=== PATIENT | female | born 1995 | race Caucasian/White ===

== ENCOUNTER 2017-09-26 11:27 | Inpatient (IN) | payer BC ==
[~2017-09-26] VITALS: Ht 170.2 cm; Wt 82.1 kg
--- NOTE | ~2017-09-26 | HC ---
[facility] [place] [address] CONSULTATION Name: EMERALD GARNETT Vipul Room #: 456-P ADM IN M.R.#: [id number] Admission: 09/26/17 Attend Phys: Jason Saravia Discharge: Date of : 89 Report #: [id number] THIS REPORT FOR: //name// CC: [facility] physician/PCP Jason Campos MD HISTORY OF PRESENT ILLNESS: The patient is a 22-year-old white woman, referred for an Infectious Disease's opinion by Dr. Campos, strap buckler, who saw the patient yesterday with painful lesion, left side of body. Culture was taken and sent to [facility], and of course, we have no results yet. Her CBC reveals elevation of white blood cell count of 11,600. The patient relates unwell since last Saturday. She feels febrile, extremely weak and having painful lesions on the left side of the chest, abdomen and left gluteal region as well as pain radiating into the left lower extremity. The patient is unaware of being exposed to anyone with MRSA. Boyfriend relates no previous yeast or Staphylococcal infection MEDICATIONS: The patient is on treatment with Minocin 75 mg b.i.d. since yesterday. Ultram 50 mg q.i.d. p.r.n. and control pill. FAMILY HISTORY: Father of liver cirrhosis -- alcoholic. Mother in good health. REVIEW OF SYSTEMS: Besides painful lesions on chest, abdominal wall and left gluteal region, the patient is said to be in apparent good health. PHYSICAL EXAMINATION: GENERAL: A 22-year-old white woman, well developed, well nourished, no distress. VITAL SIGNS: Afebrile. Vital signs stable. HEENMT: Within range. NECK: Supple, no thyromegaly. LUNGS: Clear to auscultation. HEART: S1, S2. No gallop or murmur. ABDOMEN: Soft, no masses or megaly. SKIN: Revealed multiple lesions of furunculosis on the left chest, abdominal wall and left gluteal region. The largest lesion is the one on the left gluteal area. NEUROLOGIC: Grossly within normal limit. EXTREMITIES: No clubbing or cyanosis. 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 RECOMMENDATIONS: Recommended the patient to be admitted to [facility]. We will obtain MRSA screen nasal. CBC, CMP, ESR, procalcitonin. We [address] [address] CONSULTATION Name: EMERALD GARNETT Room #: 456-P ADM IN .R.#: [id number] Admission: 09/26/17 Attend Phys: Jason Saravia Discharge: Date of : 89 Report #: [id number] will start intravenous vancomycin. Dr. Campos, thank you for requesting my suggestions in the care of your patient. <ELECTRONICALLY SIGNED> By: Emmanuel Solis MD 09/27/17 0811 [id number] Emmanuel Solis MD /nt
[2017-09-26] MEDS ORDERED: MINOCIN100 MG PO (11:37)
[2017-09-26] MEDS ORDERED: TRAMADOL 50 MG50 MG PO (11:38)
[2017-09-26] MEDS ORDERED: FEMYNOR 28 TAB1 EACH PO (11:38)
[2017-09-26 11:39] VITALS: BP 131/86
[2017-09-26 12:41] VITALS: BP 124/69
[2017-09-26 13:42] LABS: HEMATOCRIT 38.8 % (37.0-47.0); HEMOGLOBIN 13.4 gm/dL (12.0-15.0); MCH 29.8 pg (26.0-34.0); MCHC 34.7 g/dL (28.0-37.0); RBC 4.51 mil/uL (4.20-5.00); RDW 12.7 % (10.5-14.5)
[2017-09-26 13:57] LABS: ALBUMIN 3.5 g/dL (3.4-5.0); CALCIUM 9.1 mg/dL (8.5-10.1); CREATININE 0.8 mg/dL (0.6-1.0); POTASSIUM 3.8 mmol/L (3.5-5.1); TOTAL BILIRUBIN 0.3 mg/dL (<0.1-1.0); TOTAL PROTEIN 7.6 g/dL (6.4-8.2)
[2017-09-26 15:40] VITALS: BP 124/75
[2017-09-26 20:36] VITALS: BP 126/77
[2017-09-26 23:44] VITALS: BP 112/52
[2017-09-27 03:55] VITALS: BP 113/62
[2017-09-27 08:00] VITALS: BP 108/60
[2017-09-27 16:00] VITALS: BP 116/74
[2017-09-27 20:09] VITALS: BP 119/70
[2017-09-28 07:50] VITALS: BP 110/70
[2017-09-28 09:09] LABS: HEMATOCRIT 40.3 % (37.0-47.0); HEMOGLOBIN 13.7 gm/dL (12.0-15.0); MCH 29.6 pg (26.0-34.0); MCHC 34.1 g/dL (28.0-37.0); MCV 86.8 fL (80.0-100.0); RBC 4.64 mil/uL (4.20-5.00); WBC 8.7 thou/uL (4.0-11.0)
[2017-09-28 14:58] VITALS: BP 140/54
[2017-09-28 15:17] VITALS: BP 128/76
[2017-09-28 19:07] VITALS: BP 118/81
[2017-09-29 04:47] VITALS: BP 103/65
[2017-09-29 07:15] VITALS: BP 110/72
[2017-09-29 11:25] VITALS: BP 100/63
[2017-09-29 15:47] VITALS: BP 116/62
[2017-09-29 19:42] VITALS: BP 129/71
[2017-09-30 04:08] VITALS: BP 118/61
[2017-09-30 09:06] VITALS: BP 113/62
[2017-09-30] MEDS ORDERED: MUPIROCIN22 GM TOP (09:49)
[2017-09-30] MEDS ORDERED: DOXYCYCLINE 10100 MG PO (10:01)
[2017-09-30 10:14] VITALS: BP 113/62
== END 2017-09-30 10:40 | disposition home or self-care (01) | DRG 580 ==
LOC: SEN 11:27 → 4W 12:14 → SEN 15:42 → ENTRNSPT 09-30 10:31 → EDTRNSPTSTS 09-30 10:32 → 4W 09-30 10:40
PROVIDERS: Hospitalist; Internal Medicine Infectious Disease
PROC: 0Y9D0ZZ Drainage of Left Upper Leg, Open Approach (ICD-10-PCS; principal; 2017-09-29)
PROC: 0W9F0ZZ Drainage of Abdominal Wall, Open Approach (ICD-10-PCS; principal; 2017-09-29)
DX: L02.426 Furuncle of left lower limb (principal); L03.116 Cellulitis of left lower limb; L02.416 Cutaneous abscess of left lower limb; L02.211 Cutaneous abscess of abdominal wall; R11.0 Nausea; Z79.2 Long term (current) use of antibiotics; Z79.899 Other long term (current) drug therapy; Z83.49 Family history of other endocrine, nutritional and metabolic diseases; Z81.1 Family history of alcohol abuse and dependence
CPT/HCPCS: 10047; 50010; 50101; 50386; 50417; 62110; 62850; 70005